=== PATIENT | male | born 1975 | race Caucasian/White ===

== ENCOUNTER 2017-07-08 14:36 | Outpatient (CLI) | payer OTHER | END 2017-07-08 14:43 | disposition home or self-care (01) | LOC: SONOGRAMA 14:36 | DX: I86.1 Scrotal varices (principal); N20.0 Calculus of kidney; R31.1 Benign essential microscopic hematuria ==

== ENCOUNTER 2017-08-22 07:10 | Outpatient (CLI) | payer OTHER | END 2017-08-22 07:16 | disposition home or self-care (01) | LOC: LAB 07:10 | DX: N39.0 Urinary tract infection, site not specified (principal); N20.0 Calculus of kidney; R31.9 Hematuria, unspecified ==

== ENCOUNTER 2017-08-22 08:10 | Outpatient (CLI) | payer OTHER | END 2017-08-22 08:11 | disposition home or self-care (01) | LOC: SONOGRAMA 08:10 | DX: N20.0 Calculus of kidney (principal) ==

== ENCOUNTER 2018-06-18 07:21 | Outpatient (CLI) | payer OTHER | END 2018-06-18 07:41 | disposition home or self-care (01) | LOC: LAB 07:21 | DX: D64.89 Other specified anemias (principal); E78.00 Pure hypercholesterolemia, unspecified; E03.8 Other specified hypothyroidism; N39.0 Urinary tract infection, site not specified; E55.9 Vitamin D deficiency, unspecified; N41.0 Acute prostatitis; Z12.11 Encounter for screening for malignant neoplasm of colon ==

== ENCOUNTER 2018-12-31 09:05 | Outpatient (CLI) | payer OTHER | END 2018-12-31 13:57 | disposition home or self-care (01) | LOC: LAB 09:05 | DX: D64.89 Other specified anemias (principal); E78.00 Pure hypercholesterolemia, unspecified; E03.8 Other specified hypothyroidism; N39.0 Urinary tract infection, site not specified; N41.0 Acute prostatitis; Z11.3 Encounter for screening for infections with a predominantly sexual mode of transmission; E55.9 Vitamin D deficiency, unspecified; Z11.4 Encounter for screening for human immunodeficiency virus [HIV] ==

== ENCOUNTER 2018-12-31 09:10 | Outpatient (CLI) | payer OTHER | END 2018-12-31 09:16 | disposition home or self-care (01) | LOC: SONOGRAMA 09:10 | DX: E04.1 Nontoxic single thyroid nodule (principal); R13.12 Dysphagia, oropharyngeal phase ==

== ENCOUNTER 2019-12-09 07:35 | Outpatient (CLI) | payer OTHER | END 2019-12-09 07:45 | disposition home or self-care (01) | LOC: LAB 07:35 | DX: D64.89 Other specified anemias (principal); E78.00 Pure hypercholesterolemia, unspecified; N39.0 Urinary tract infection, site not specified; E03.8 Other specified hypothyroidism; E55.9 Vitamin D deficiency, unspecified; N41.0 Acute prostatitis; Z23 Encounter for immunization; Z11.3 Encounter for screening for infections with a predominantly sexual mode of transmission; Z11.4 Encounter for screening for human immunodeficiency virus [HIV] ==